=== PATIENT | female | born 1955 | race Caucasian/White ===

== ENCOUNTER → 2017-03-27 | Outpatient (CLI) | payer BC ==
[~2017-03-27] MED LIST: DIOVAN320 MG PO; DULCOLAX-DPS10 MG PR; GLUCOPHAGE-DPS500 MG PO; LIPITOR DPS20 MG PO; MOTRIN-DPS400 MG PO; PERCOCET 5-3251 EACH PO; PRILOSEC DPS20 MG PO; SENOKOT-S TABL1 EACH PO
== END | disposition home or self-care (01) ==
LOC: RAD.S 03-26 10:50
DX: Z12.31 Encounter for screening mammogram for malignant neoplasm of breast (principal); R92.1 Mammographic calcification found on diagnostic imaging of breast